=== PATIENT | male | born 1955 | race Caucasian/White ===

== ENCOUNTER → 2023-11-10 18:24 | Outpatient (REF) | payer OTHER, SELFPAY | LOC: MRI 18:24 | PROVIDERS: ATTENDING PHYSICIAN Physical Medicine & Rehabilitation; FAMILY PHYSICIAN Family Medicine | DX: M54.12 Radiculopathy, cervical region (principal); M54.2 Cervicalgia; M25.512 Pain in left shoulder | CPT/HCPCS: 72141; 73221 ==

== ENCOUNTER → 2024-01-02 12:09 | Outpatient (REF) | payer OTHER, SELFPAY | LOC: RAD 12:09 | PROVIDERS: ATTENDING PHYSICIAN Family Medicine | DX: E04.1 Nontoxic single thyroid nodule (principal) | CPT/HCPCS: 76536 ==

== ENCOUNTER → 2024-02-08 07:48 | Outpatient (REF) | payer OTHER, SELFPAY ==
[2024-02-08 08:03] VITALS: BP 138/79; BP_SYST 52
== END ==
LOC: RADI 07:48
PROVIDERS: ATTENDING PHYSICIAN Otolaryngology
DX: E04.2 Nontoxic multinodular goiter (principal)
CPT/HCPCS: 88173; 10005; 10006

== ENCOUNTER → 2024-07-22 12:37 | Outpatient (REF) | payer OTHER, SELFPAY | LOC: PAVMRI 12:37 | PROVIDERS: ATTENDING PHYSICIAN Orthopaedic Surgery; FAMILY PHYSICIAN Family Medicine | DX: M23.92 Unspecified internal derangement of left knee (principal) | CPT/HCPCS: 73721 ==

== ENCOUNTER → 2024-08-02 14:51 | Outpatient (REF) | payer OTHER, SELFPAY | LOC: RAD 14:51 | PROVIDERS: ATTENDING PHYSICIAN Otolaryngology; FAMILY PHYSICIAN Family Medicine | DX: E04.1 Nontoxic single thyroid nodule (principal) | CPT/HCPCS: 76536 ==

== ENCOUNTER → 2025-02-11 13:43 | Outpatient (REF) | payer OTHER, SELFPAY | LOC: RAD 13:43 | PROVIDERS: ATTENDING PHYSICIAN Otolaryngology; FAMILY PHYSICIAN Family Medicine | DX: E04.1 Nontoxic single thyroid nodule (principal) | CPT/HCPCS: 76536 ==